=== PATIENT | female | born 1980 | race Caucasian/White ===

== ENCOUNTER 2016-12-21 19:21 | Emergency (ER) | payer SELFPAY ==
[~2016-12-21 19:21] MED LIST: CYMBALTA; IRON PILLS
--- NOTE | 2016-12-21 20:36 | NUR ---
PATIENT LEFT WITHOUT BEING SEEN BY DR. SANDOVAL. NO FURTHER CARE PROVIDED FOR PATIENT.
== END 2016-12-21 20:36 | disposition left against medical advice (07) ==
LOC: MED 19:21
DX: N64.4 Mastodynia (principal); Z53.21 Procedure and treatment not carried out due to patient leaving prior to being seen by health care provider